=== PATIENT | female | born 1960 | race Caucasian/White ===

== ENCOUNTER → 2017-04-01 | Outpatient (CLI) | payer BC | LOC: RAD 13:00 | DX: R01.1 Cardiac murmur, unspecified (principal) ==

== ENCOUNTER → 2017-10-23 | Outpatient (CLI) | payer BC | LOC: CARDLAB 08:04 → CARDREHAB 09:40 → CARDLAB 12:36 | DX: R94.31 Abnormal electrocardiogram [ECG] [EKG] (principal) | CPT/HCPCS: A9500 ==

== ENCOUNTER 2023-08-05 16:09 | Emergency (ER) | payer OTHER ==
[~2023-08-05] VITALS: Ht 162.6 cm; Wt 87.7 kg
[2023-08-05] MEDS ORDERED: WELLBUTRIN SR200 M1 PO (16:21)
[2023-08-05] MEDS ORDERED: GLUCOPHAGE PO (16:22)
[2023-08-05] MEDS ORDERED: CYCLOBENZAPRINE10 M1 PO (16:22)
[2023-08-05] MEDS ORDERED: ARIPIPRAZOLE OD15 MG PO (16:23)
[2023-08-05] MEDS ORDERED: VOLTAREN 75 DR75 MG PO (16:23)
[2023-08-05] MEDS ORDERED: NEBIVOLOL HCL20 MG PO (16:23)
[2023-08-05] MEDS ORDERED: HCTZ 25MG25 MG PO (16:24)
[2023-08-05] MEDS ORDERED: ROSUVASTATIN CA20 MG PO (16:24)
[2023-08-05] MEDS ORDERED: LOSARTAN POTAS100 MG PO (16:24)
[2023-08-05] MEDS ORDERED: UNITHROID100 MCG PO (16:25)
[2023-08-05] MEDS ORDERED: DESVENLAFAXINE50 MG PO (16:25)
[2023-08-05] MEDS ORDERED: AMLODIPINE BESYL5 MG PO (16:25)
[2023-08-05 17:11] LABS: BASO # 0.01 K/mm3 (0.02-0.10); EOS # 0.14 K/mm3 (0.04-0.40); EOS % 1.3 % (1.0-5.0); HEMATOCRIT 43.4 % (37.0-47.0); HEMOGLOBIN 14.4 g/dL (12.5-16.0); LYMPH# 0.62 K/mm3 (1.50-4.00); MEAN CELL VOLUME 91 fl (78-100); MEAN CORPUSCULAR HEMOGLOBIN 30 pg (27-31); MEAN CORPUSCULAR HGB CONC 33 g/dL (33-37); MEAN PLATELET VOLUME 9.8 fl (7.4-10.4); MONO # 0.74 K/mm3 (0.20-0.80); PLATELET COUNT 275 K/mm3 (130-400); RED BLOOD COUNT 4.75 M/mm3 (4.10-5.30); RED CELL DISTRIBUTION WIDTH 12.7 % (11.5-14.5); WHITE BLOOD COUNT 11.1 K/mm3 (4.8-10.8)
[2023-08-05 17:11] LABS: URINE APPEARANCE CLOUDY (CLEAR); URINE BILIRUBIN NEGATIVE (NEGATIVE); URINE BLOOD NEGATIVE (NEGATIVE); URINE COLOR YELLOW (YELLOW); URINE GLUCOSE NEGATIVE (NEGATIVE); URINE KETONE NEGATIVE (NEGATIVE); URINE LEUKOCYTE ESTERASE 1+ (NEGATIVE); URINE NITRATE POSITIVE (NEGATIVE); URINE PROTEIN(semi-quant) 1+ (NEGATIVE)
[2023-08-05 17:12] LABS: ALBUMIN 4.5 g/dL (3.4-4.8)
[2023-08-05 17:12] LABS: URINE WBC >50 /hpf (0-3)
[2023-08-05 17:13] LABS: SODIUM 141 mmol/L (136-145)
[2023-08-05 17:14] LABS: CALCIUM 9.7 mg/dL (8.3-10.5)
[2023-08-05 17:15] LABS: GLUCOSE 107 mg/dL (65-105); TOTAL PROTEIN 7.8 g/dL (6.2-8.1)
[2023-08-05 17:16] LABS: CARBON DIOXIDE 22 mmol/L (23-31)
[2023-08-05 17:17] LABS: TOTAL BILIRUBIN 0.9 mg/dL (0.2-1.2)
[2023-08-05 17:20] LABS: AST-SGOT 20 U/L (5-34)
[2023-08-05 17:21] LABS: ALT/SGPT 40 U/L (0-55)
[2023-08-05 17:29] LABS: TROPONIN-I < 0.030 ng/mL (<0.030)
[2023-08-05 17:30] LABS: PROTHROMBIN TIME 9.9 SECONDS (9.0-12.0)
[2023-08-05] MEDS ORDERED: CIPRO250 M1 PO (18:25)
[2023-08-05 18:32] VITALS: BP 138/101
== END 2023-08-05 18:40 | disposition home or self-care (01) ==
LOC: ED 16:09
PROVIDERS: Physician Assistant
DX: R41.82 Altered mental status, unspecified (principal); N39.0 Urinary tract infection, site not specified; B37.9 Candidiasis, unspecified
CPT/HCPCS: J0696